=== PATIENT | female | born 1935 | race Caucasian/White ===

== ENCOUNTER 2016-04-22 12:19 | Emergency (ER) | payer MEDICARE ==
[~2016-04-22] VITALS: Ht 167.6 cm; Wt 106.8 kg
[~2016-04-22 12:19] MED LIST: CLIN-78 PO; FUR20 PO; LEVO112T4 PO; LISI2.5T PO; METO25TA6 PO; MULT1CAP33 PO; OMEP20CA11 PO; WARF5TAB7 PO
[2016-04-22 12:27] VITALS: BP 144/65; PULSE 65; RESP 20; O2SAT 97
[2016-04-22] MEDS ORDERED: Fluorescein 0.6 mg Ophthalmic Strip ONE (13:26)
[2016-04-22] MEDS ORDERED: 0.9% Sodium Chloride Inhalation Solution ONE (13:26)
[2016-04-22] MEDS ORDERED: Tetracaine 0.5% 4 mL Ophthalmic Solution ONE (13:27)
[2016-04-22] MEDS ORDERED: Fluorescein 0.6 mg Ophthalmic Strip LEFT_EYE ONE (13:30)
[2016-04-22] MEDS ORDERED: Tetracaine 0.5% 4 mL Ophthalmic Solution LEFT_EYE ONE (13:30)
[2016-04-22] MEDS ORDERED: 0.9% Sodium Chloride Inhalation Solution LEFT_EYE ONE (13:30)
--- NOTE | 2016-04-22 14:22 | ED.REPORT ---
HPI-Eye Problem Date of Service Apr 22, 2016 ED Provider: Angelita Turner Nursing Notes Stated Complaint: EYE PAIN Chief Complaint: Eye Nursing Notes Reviewed: Yes Allergies: Coded Allergies: Penicillins (Verified Allergy, Severe, hives, 01/27/15) methyldopa (Verified Allergy, Intermediate, combativeness, 01/27/15) Scheduled Clindamycin (Clindamycin) 300 Mg Capsule 300 MG PO QID Levothyroxine (Levothyroxine) 112 Mcg Tablet 112 MCG PO DAILY Lisinopril (Lisinopril) 2.5 Mg Tablet 2.5 MG PO DAILY Metoprolol Tartrate (Metoprolol Tartrate) 25 Mg Tablet 25 MG PO BID Multivitamin (Multivitamins) 1 Each Capsule 1 EACH PO DAILY Omeprazole (Omeprazole) 20 Mg Capsule.dr 20 MG PO DAILY Warfarin Sodium (Warfarin Sodium) 5 Mg Tablet 5 MG PO HS Scheduled PRN Furosemide (Furosemide) 20 Mg Tab 20 MG PO PRN swelling General Time Seen by MD: 12:44 Chief Complaint Left eye affected, Irritation/itching, Redness Thought she had a hair in her eye and removed it. Now redness and irritation. Hx Obtained From: Patient, Spouse Arrived By: Walk-in Onset Occurred: Yesterday Symptom Duration: Since onset Progression Since Onset: Gradually worsening Caused by: Foreign body in eye Context: Occurred at: Home Location: : Eye left Quality: Itching, Painful Radiation: Does not radiate Severity: Current: Moderate Severity: Maximum: Moderate Associated with: Reports: Eye tearing, Foreign body sensation, Denies: Blurred vision, Halos around lights, Nausea, Photophobia Pertinent Negative: Pt denies other symptoms Exacerbated by: Blinking Relieved by: Eyes closed Related History: Reports: Cataracts (cataract removal and lens replacement), Denies: Glaucoma, Macular degeneration, Other eye disease, Recent eye trauma Recent Healthcare: Recent doctor visit Similar Sx Previous: No Past Medical History Past Medical History charcot feet Reports: Diabetes mellitus Past Surgical History ankle, left knee Reports: Appendectomy, Tonsillectomy Smoking History Never Smoker Social History Alcohol Use: Denies alcohol use Drug Use: Denies drug use Occupation lives with son Review of Systems Basic Review of Systems Respiratory: No shortness of breath, No cough, No wheeze Cardiovascular: No chest pain, No dyspnea on exertion, No orthopnea, No parox noct dyspnea, No palpitations GI: No abdominal pain, No anorexia, No nausea, No vomiting Musculoskeletal: No extremity swelling, No extremity pain, Full range of motion , Joints NL Hematologic: No bleeding, No bruising Endocrine: No cold intolerance, No heat intolerance, No weight gain, No weight loss Allergy / Immune: No allergy Psychiatric: Normal thought content Constitutional: Denies: Fatigue, Fever Eyes: Reports: Redness left, Denies: Blurred bilateral, Discharge bilateral, Eye pain bilateral, Photophobia, Visual loss bilateral Skin: Denies Bruising, Denies Itching, Denies Rash Neurologic: Denies: Change LOC, Confusion, Dizziness Complete sys rev & neg: except as marked. Physical Exam Initial Vital Signs Vital Signs (First) Date Time Temp Pulse Resp B/P Pulse Ox O2 Delivery O2 Flow Rate FiO2 04/22/16 12:27 36.4 65 20 144/65 97 Room Air Initial VS: Reviewed General / Const: Well-developed, Well-nourished ENT: Mucous membranes moist, No scleral icterus Neck: Supple, Non-tender, Full range of motion Respiratory: No respiratory distress Abdomen / GI: No distention Extremities: Vascular intact, Neuro intact, No swelling, No tenderness Skin: Warm, Dry, No cyanosis Neurologic: Alert, Oriented, Nonfocal Psychiatric: Mood/affect normal, Behavior normal, Normal thought content Head / Eyes: Atraumatic, Normocephalic, PERRL, EOMI, No periorbital redness, No periorbital swelling, No photophobia, Cornea clear, Eyelids NL Conjunctiva / Sclera: Positive: Injected left, Negative: Chemosis L, Discharge L..., Subconj hemorrhage left Procedures Foreign Body Removal - Eye lid everted and examined for FB, none seen. No fluorescein stain uptake. Tonopen to sclera shows reading 20mmhg Procedure Performed by: Allied health pract Consent / Setup / Site Prep: Consent from patient, Hand hygiene observed, Stand sterile technique Eye / Location / # FB: Left eye, Conjunctiva Anesthesia/Equipment/Procedure: Tetracaine, Eye lid(s) everted Discharge & Departure Shift Change Sign-Out Response to Therapy: Improved Primary Impression: Conjunctivitis Disposition: Home Discharge Condition All VS Reviewed: Yes Condition: Improved Patient Instructions: Conjunctivitis (ED), Corneal Abrasion (ED) Additional Instructions: Your exam does not show a retained foreign body or a deep scratch. The infection to the eye is likely from the irritation of trying to remove it. The pressure reading was normal today. Use the drops as directed. If the discomfort and redness does not improve with the eye drops, please return to the ER or see your regular doctor as you may need to be referred to an control specialist. Referrals: NOPCP (PCP) EDSupervising Provider for APC: Ankit Espinosa Lora L ARNP Apr 22, 2016 14:22
[2016-04-22] MEDS ORDERED: CIPR2.5D LEFT_EYE (14:28)
== END 2016-04-22 14:25 | disposition home or self-care (01) ==
LOC: SED 12:19
DX: H10.9 Unspecified conjunctivitis (principal); E11.9 Type 2 diabetes mellitus without complications; Z97.3 Presence of spectacles and contact lenses; Z79.01 Long term (current) use of anticoagulants; Z88.0 Allergy status to penicillin; Z88.8 Allergy status to other drugs, medicaments and biological substances